=== PATIENT | female | born 1970 | race Hispanic/Latino ===

== ENCOUNTER 2016-06-05 09:03 | Outpatient (CLI) | payer OTHER ==
--- NOTE | 2016-06-06 14:42 | Vascular Lab Report ---
LOWER EXTREMITY ARTERIAL DUPLEX: REASON FOR EXAM: Peripheral arterial disease. COMMENTS ON THE RIGHT: Triphasic waveforms are seen proximally. Triphasic waveforms are seen distally. No significant velocity gradients are identified. No focal significant plaque is identified. Findings are consistent with normal perfusion. Findings are consistent with the ability to heal distal wounds. COMMENTS ON THE LEFT: Triphasic waveforms are seen proximally. Triphasic waveforms are seen distally. No significant velocity gradients are identified. No focal significant plaque is identified. Findings are consistent with normal perfusion. Findings are consistent with the ability to heal distal wounds. IMPRESSION: RIGHT: Essentially normal arterial flow. LEFT:Essentially normal arterial flow.
== END 2016-06-05 09:04 | disposition home or self-care (01) ==
LOC: ECHO 09:03
DX: M79.604 Pain in right leg (principal); M79.605 Pain in left leg; R60.0 Localized edema; C50.919 Malignant neoplasm of unspecified site of unspecified female breast
CPT/HCPCS: 93306; 93925; 93970